=== PATIENT | female | born 2000 | race Caucasian/White ===

== ENCOUNTER 2020-01-04 07:27 | Inpatient (IN) | payer MEDICAID, OTHER ==
[~2020-01-04] VITALS: Ht 154.9 cm; Wt 49.9 kg
[2020-01-04 07:42] VITALS: BP 113/77
[2020-01-04] MEDS ORDERED: LACTATED RINGERS 1,000 ML IV STA ×2 (08:04→09:57)
[2020-01-04] MEDS ORDERED: ZOFRAN IV STA (08:04)
[2020-01-04 08:06] VITALS: BP 113/77
--- NOTE | 2020-01-04 08:10 | ER.PDOC ---
General Chief Complaint: less 20 wks Stated Complaint: 7 WKS PREG;VOMITTING Time seen by MD: 08:05 Source: patient Exam Limitations: no limitations History of Present Illness Initial Comments Nausea and vomiting since yesterday, no abdominal pain or diarrhea and patient says that she is 7 weeks . Severity/Quality: moderate Associated Symptoms (vomiting): freq vomitng Vital Signs First Vital Signs Date Time Temp Pulse Resp B/P (MAP) Pulse Ox O2 Delivery O2 Flow Rate FiO2 01/04/20 07:42 98.1 82 16 100 Last Vital Signs Date Time Temp Pulse Resp B/P (MAP) Pulse Ox O2 Delivery O2 Flow Rate FiO2 01/04/20 08:06 98.1 82 16 100 Past Medical History Medical History: no pertinent history Surgical History: no surgical history Social History Alcohol Use: none Drug Use: none Constitutional: no symptoms reported Respiratory: no symptoms reported Cardiovascular: no symptoms reported Gastrointestinal: see HPI Genitourinary: no symptoms reported All Other Systems: Reviewed and Negative Physical Exam General Appearance: No Apparent Distress, WD/WN Neck: Non-Tender, Full Range of Motion, Supple, Normal Inspection Respiratory: chest non-tender, lungs clear, normal breath sounds, no respi ratory distress, no accessory muscle use Cardiovascular: Normal Peripheral Pulses, Regular Rate, Rhythm, No Edema, No Gallop, No JVD, No Murmur Gastrointestinal: Normal Bowel Sounds, Non Tender, Soft Back: Normal Inspection, No CVA Tenderness, No Vertebral Tenderness Extremities: Normal Range of Motion, Non-Tender, Normal Inspection, No Pedal Edema, No Calf Tenderness, Normal Capillary Refill, Pelvis Stable 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, No Motor/Sensory Deficits, Alert, Normal Mood/Affect, Oriented x 3 Skin: Normal Color, Warm/Dry Results/Orders Results/Orders Orders - JOVANI MONSIVAIS MD Cbc With Auto Diff (01/04/20 08:04) Comprehensive Metabolic Panel (01/04/20 08:04) Lipase (01/04/20 08:04) Urinalysis (01/04/20 08:04) Hcg Urine (01/04/20 08:04) Ringer's Solution,Lactated (Lactated Rin (01/04/20 08:04) Ondansetron Hcl/Pf (Zofran) (01/04/20 08:04) Ringer's Solution,Lactated (Lactated Rin (01/04/20 08:13) Ondansetron Hcl/Pf (Zofran) (01/04/20 08:14) Urine Culture (01/04/20 07:40) Vital Signs Date Time Temp Pulse Resp B/P (MAP) Pulse Ox O2 Delivery O2 Flow Rate FiO2 01/04/20 08:06 98.1 82 16 100 01/04/20 07:42 98.1 82 16 01/04/20 07:42 98.1 82 16 100 Administered Medications Medications (Trade) Dose Ordered Sig/Akbar Route PRN Reason Start Time Stop Time Status Last Admin Dose Admin Ondansetron HCl (Zofran) 4 mg STAT STAT IV 01/04/20 08:04 01/04/20 08:05 DC 01/04/20 08:22 4 MG Laboratory Tests Test 01/04/20 07:40 01/04/20 08:10 01/04/20 08:27 Urine Collection Type VOID Urine Color YELLOW (YELLOW) Urine Appearance CLOUDY (CLEAR) H Urine Bilirubin NEGATIVE MG/DL (NEGATIVE) Urine Ketones MODERATE (NEGATIVE) H Urine Specific [place] 1.020 (1.005-1.035) Urine pH 7.0 (5.0-6.0) Urine Protein TRACE (NEGATIVE) H Urine Urobilinogen NORMAL (NEGATIVE) Urine Nitrate NEGATIVE (NEGATIVE) Urine Leukocyte Esterase NEGATIVE (NEGATIVE) Urine Blood NEGATIVE (NEGATIVE) Urine RBC NONE SEEN RBC/HPF (NONE Urine WBC 0-2 WBC/HPF (0-2) Urine Squamous Epithelial Cells MANY #/HPF (FEW) Urine Bacteria FEW (NONE SEEN) H Urine Glucose NEGATIVE (NEGATIVE) Urine HCG, Qualitative POSITIVE (NEGATIVE) White Blood Count 19.9 10^3/uL (4.5-12.5) H Red Blood Count 5.12 10^6/uL (4.00-5.20) Hemoglobin 15.7 g/dL (12.4-14.8) H Hematocrit 42.7 % (36.0-46.0) Mean Corpuscular Volume 83.4 fL (78-100) Mean Corpuscular Hemoglobin 30.7 pg (26-34) Mean Corpuscular Hemoglobin Concent 36.8 g/dL (33-36.5) H Red Cell Distribution Width 12.0 % (11.5-14.5) Platelet Count 259 10^3/uL (150-400) Mean Platelet Volume 10.6 fL (7.8-11.0) Neutrophils (%) (Auto) 90.4 % (41.0-85.0) *H Lymphocytes (%) (Auto) 5.2 % (24.0-44.0) *L Monocytes (%) (Auto) 4.0 % (5.0-12.0) L Neutrophils # (Auto) 18.0 10^3/uL (1.8-8.0) H Lymphocytes # (Auto) 1.03 10^3/uL1 (1.2-5.2) L Monocytes # (Auto) 0.8 10^3/uL (0.0-0.4) H Absolute Immature Granulocyte (auto 0.06 10^3 u/L (0-2) Absolute Eosinophils (auto) 0.0 10^3/uL (0.0-0.2) Immature Granulocytes % 0.30 % (0.00-0.50) Eosinophils % 0.0 % (0.0-5.0) Basophils % 0.1 % (0.0-0.2) Basophils # 0.0 10^3/uL (0.0-0.1) Sodium Level 130 mmol/L (132-145) L Potassium Level 3.4 mmol/L (3.6-5.2) L Chloride Level 97.0 mmol/L (96-109) Carbon Dioxide Level 23.6 mmol/L (20.0-32) Anion Gap 12.8 Blood Urea Nitrogen 10 mg/dL (7-18) Creatinine 0.70 mg/dL (0.59-1.40) Estimated GFR () 129.1 (>/=60) Est GFR (CKD-EPI)(Non-Afr Ukrainian) 106.7 (>/=60) BUN/Creatinine Ratio 14.0 Glucose Level 137 mg/dL (70-110) H Calcium Level 9.3 mg/dL (8.4-10.5) Total Bilirubin 0.7 mg/dL (0.2-1.0) Aspartate Amino Transferase (AST) 13 U/L (0-35) Alanine Aminotransferase (ALT) 14 U/L (12-78) Alkaline Phosphatase 55 U/L (50-136) Total Protein 6.9 g/dL (6.4-8.2) Albumin 4.1 g/dL (3.4-5.0) Globulin 2.8 Lipase 54 U/L (114-286) L Segmented Neutrophils 95 % (28-78) H Lymphocytes 2 % (25-36) L Monocytes 3 % (3-9) Platelet Estimate ADEQUATE Platelet Morphology NORMAL Blood Morphology Comment NORMAL MORPHOLOGY Departure Time of Disposition: 09:05 Disposition: 09 ADMITTED INPATIENT Impression: Primary Impression: Hyperemesis gravidarum before end of 22 week gestation, dehydration Condition: Stable Referrals: PCP,UNKNOWN (PCP) PRIMARY CARE PROVIDER Comments Admitted to Dr. Whitley Duration or Time Spent with Pa: 45 min JOVANI MONSIVAIS MD January 04, 2020 08:10
[2020-01-04] MEDS ORDERED: LACTATED RINGERS 1,000 ML ONE ×2 (08:13→21:40)
[2020-01-04] MEDS ORDERED: ZOFRAN ONE ×3 (08:14→17:51)
[2020-01-04 08:17] LABS: BASOPHIL % 0.1 % (0.0-0.2); LYMPHOCYTES # 1.03 10^3/uL1 (1.2-5.2); LYMPHOCYTES % 5.2 % (24.0-44.0); MEAN CORP HGB 30.7 pg (26-34); MONOCYTES # 0.8 10^3/uL (0.0-0.4); NEUTROPHILS % 90.4 % (41.0-85.0); PLATELET COUNT 259 10^3/uL (150-400)
[2020-01-04 08:24] LABS: APPEARANCE,URINE CLOUDY (CLEAR); BILIRUBIN,URINE NEGATIVE (NEGATIVE); UA COLOR YELLOW (YELLOW)
[2020-01-04 08:25] LABS: UROBILINOGEN,URINE NORMAL (NEGATIVE)
[2020-01-04 08:33] LABS: CALCIUM 9.3 mg/dL (8.4-10.5); CARBON DIOXIDE 23.6 mmol/L (20.0-32)
[2020-01-04 08:44] LABS: LYMPHOCYTE 2 % (25-36); MONOCYTE 3 % (3-9); SEGMENTED NEUTROPHILS 95 % (28-78)
[2020-01-04] MEDS ORDERED: HNS 1000ML/KCL 20MEQ 1,000 ML IV STA (09:06)
[2020-01-04] MEDS ORDERED: HNS 1000ML/KCL 20MEQ 1,000 ML ONE (09:11)
--- NOTE | 2020-01-04 09:32 | NUR ---
REPORT REPORT CALLED TO FRANDY VANESSA. PT TAKEN BY W/C ESCORTED BY ROMULO VANESSA. PT ALERT, ORIENTED, STABLE UPON TRANFER.
[2020-01-04] MEDS ORDERED: REGLAN IV STA (09:57)
--- NOTE | 2020-01-04 09:57 | PCM.HP ---
HISTORY & PHYSICAL HISTORY & PHYSICAL DATE OF ADMISSION: 01/04/20 CHIEF COMPLAINT: intractable N/V x 2 days. HISTORY OF PRESENT ILLNESS: 19 year old G1 with sure LMP 11/13/19 (EDC of 08/20/2020) at 7 3/7 weeks who presented to the ER today with intractable N/V x 2 days. Travelling between [place] and [place]. No abd pain. No dysuria. No fever, + chills, no sick contacts with the same sx's. + nervous personality. Feels the same after 1 L NS and Zofran in the ER. Per patient, previous U/S with IUP, + FHR. PAST MEDICAL HISTORY: none SURGICAL HISTORY: none CURRENT MEDICATIONS: PNV ALLERGIES: NKDA FAMILY HISTORY: DM SOCIAL HISTORY: no E/T/D, no STD Hx REVIEW OF SYSTEMS: CONST: No fever, + fatigue, no weight changes. EYES: No recent vision problems. ENT: No congestion, ear pain, or sore throat. C/V: No chest pain, palpitations, or edema. RESP: No cough, congestion, wheezing or shortness of breath. GI: No constipation, or diarrhea. : No incontinence or dysuria. M/S: No joint pain or swelling. SKIN: No rash. NEURO: No headache, focal numbness or weakness, dizziness, or seizures. PSYCH: No depression or anxiety. ENDO: No thyroid problems. No polyuria or polydipsia. HEME: No abnormal bruising or bleeding. LYMPH: No swollen glands. IMMUN: No itching or hives. PHYSICAL EXAM: VITALS: VSSAF GENERAL: + hunched over while vomiting HEAD: Normal with no signs of head trauma. ENT: Hearing grossly intact, normal oropharynx. NECK: Supple, no tenderness, no lymphadenopathy, no masses, no thyromegaly LUNGS: Clear breath sounds. Heart: Reg rate. ABD: Bowel sounds normal, soft, nontender, no masses, no organomegaly, LYMPH: No lymphadenopathy noted. : not done EXT: Intact x 4 SKIN: No rashes or lesions. NEURO: Alert and oriented x3. Normal affect. ASSESSMENT: Hyperemesis gravidarum - not remediated in the ER PLAN: Admit for 23 hour obs, IV hydration, anti-emetic, H2 lulu. I discussed with the patient that if she improves, will give po trial and discharge this afternoon. However, if she doesn't improve, then made need to keep her overnight or longer. She verbalizes good understanding. All questions answered. LIDA RODRIGUEZ MD January 04, 2020 09:57
[2020-01-04] MEDS: PEPCID IV SCH ×2 (10:11→21:35)
[2020-01-04] MEDS ORDERED: LACTATED RINGERS 2,000 ML ONE (10:16)
[2020-01-04] MEDS: ZOFRAN IV SCH ×2 (10:19→17:56)
[2020-01-04] MEDS ORDERED: NS 25ML 25 ML IV ONE (19:05)
[2020-01-04] MEDS ORDERED: PEPCID IV ONE (19:07)
[2020-01-04] MEDS: PHENERGAN IV PRN (19:15)
[2020-01-04] MEDS ORDERED: AMBIEN ONE (21:36)
[2020-01-04] MEDS: LACTATED RINGERS 1,000 ML IV SCH (21:48)
[2020-01-04] MEDS ORDERED: AMBIEN PO PRN (22:00)
[2020-01-05] MEDS ORDERED: NS 25ML 25 ML IV ONE ×2 (01:45→02:26)
[2020-01-05] MEDS ORDERED: PHENERGAN ONE ×2 (01:45→07:23)
[2020-01-05] MEDS: PHENERGAN IV PRN ×2 (01:48→07:34)
[2020-01-05] MEDS ORDERED: ZOFRAN ONE ×3 (02:25→17:18)
[2020-01-05] MEDS: ZOFRAN IV SCH ×3 (02:30→17:42)
[2020-01-05] MEDS: LACTATED RINGERS 1,000 ML IV SCH ×5 (02:35→22:40)
--- NOTE | 2020-01-05 06:46 | PRM.PN ---
PROGRESS NOTE S/O/A/P DATE: 01/05/20 S: continuous nausea, vomited x 3 overnight, + abd soreness due to repeated vomiting (no focal abd pain). O: VSSAF General: A&O x 4, no respiratory distress, left lateral decubitus/curled Abdomen: soft, non-tender, no CVAT A: Hyperemesis gravidarum - no improvement P: Continue IV hydation/Reglan/Zofran; re-check CBC/BMP/amylase/lipase, OB (to rule out molar and multiple gestation) and pancreas/GB US, IV steroids to decrease the overreaction to stimuli, supportive care. LIDA RODRIGUEZ MD January 05, 2020 06:46
[2020-01-05 07:22] LABS: BASOPHIL # 0.1 10^3/uL (0.0-0.1); BASOPHIL % 0.3 % (0.0-0.2); LYMPHOCYTES # 1.25 10^3/uL1 (1.2-5.2); LYMPHOCYTES % 8.3 % (24.0-44.0); MEAN CORP HGB 30.7 pg (26-34); MONOCYTES % 6.5 % (5.0-12.0); NEUTROPHIL # 12.8 10^3/uL (1.8-8.0); NEUTROPHILS % 84.5 % (41.0-85.0); PLATELET COUNT 244 10^3/uL (150-400); RED CELL DISTRIBUTION WIDTH 12.2 % (11.5-14.5)
[2020-01-05 07:26] LABS: CALCIUM 9.1 mg/dL (8.4-10.5); CARBON DIOXIDE 25.7 mmol/L (20.0-32)
[2020-01-05] MEDS: ATIVAN IV SCH ×4 (07:34→14:12)
[2020-01-05] MEDS ORDERED: LACTATED RINGERS 1,000 ML ONE ×3 (07:46→17:18)
[2020-01-05] MEDS ORDERED: ATIVAN ONE ×4 (10:18→21:42)
[2020-01-05] MEDS ORDERED: PEPCID IV ONE ×2 (10:18→20:19)
[2020-01-05] MEDS: PEPCID IV SCH ×2 (10:22→20:41)
--- NOTE | 2020-01-05 10:46 | DIREP ---
PROCEDURE:ABDOMINAL ULTRASOUND COMPARISON:None. INDICATIONS:persistent nausea/vomiting at 7 weeks FINDINGS: PANCREAS:Normal pancreas. LIVER:Normal hepatic parenchymal architecture. GALLBLADDER:Normal appearing gallbladder without evidence for gallbladder wall thickening or pericholecystic fluid. The gallbladder wall measures 3 mm. Common bile duct is normal at 3 mm. BILIARY:There is no biliary ductal dilatation. RIGHT KIDNEY:Normal. No hydronephrosis. The right kidney measures 10.4 cm in greatest dimension pre LEFT KIDNEY:Normal. No hydronephrosis. The left kidney measures 10.4 cm in greatest dimension. SPLEEN:Normal. AORTA:The visualized portions appear unremarkable. IVC:Intrahepatic portions unremarkable. OTHER:Negative. No ascites is identified. CONCLUSION:No abnormality noted. Dictated by: Giovanni Masters M.D. on 01/05/2020 at 10:42 AM
--- NOTE | 2020-01-05 11:28 | DIREP ---
PROCEDURE:US OB 1ST TRI - TV COMPARISON:None. INDICATIONS:hyperemesis TECHNIQUE:Transabdominal and endovaginal pelvic ultrasound images were obtained. Endovaginal images were obtained to optimally evaluate the and maternal adnexal structures. FINDINGS: LMP: November 12, 2019, corresponding to an EGA of 7 W 5 D BRANDO (LMP): Aug 18, 2020 INTRAUTERINE GESTATIONAL SAC:Present. YOLK SAC: Absent. POLE: Present. CRL = 1.1 cm, corresponding to an EGA of 7 W 2 D. US BRANDO:Aug 21, 2020 CARDIAC ACTIVITY:Present. 142 bpm. UTERUS:Normal. OVARIES:Normal. Right ovary measures 3.2 cm. Left ovary measures 3.1 cm. There are no adnexal masses. CUL-DE-SAC:Normal. OTHER:Survey of the placental anatomic structure and amniotic fluid could not be performed because of gestational age (<14 weeks). CONCLUSION: Single live intrauterine . Dictated by: Jorge A Robb III, MD on 01/05/2020 at 11:20 AM
[2020-01-05] MEDS: REGLAN IV SCH ×3 (11:53→23:49)
[2020-01-05] MEDS ORDERED: SOLU-CORTEF ONE ×2 (14:05→21:13)
[2020-01-05] MEDS: SOLU-CORTEF IV SCH ×2 (14:12→21:33)
[2020-01-05] MEDS ORDERED: ATIVAN IV PRN (16:00)
[2020-01-05] MEDS ORDERED: WATER 20 ML ONE (21:23)
[2020-01-05] MEDS ORDERED: LACTATED RINGERS 2,000 ML ONE (22:24)
[2020-01-06] MEDS ORDERED: ZOFRAN ONE ×2 (01:28→09:13)
[2020-01-06] MEDS: ZOFRAN IV SCH ×2 (01:35→09:25)
[2020-01-06] MEDS: LACTATED RINGERS 1,000 ML IV SCH (04:07)
[2020-01-06] MEDS ORDERED: SOLU-CORTEF ONE (05:46)
[2020-01-06] MEDS ORDERED: WATER 20 ML ONE (05:47)
[2020-01-06] MEDS: REGLAN IV SCH (05:51)
[2020-01-06] MEDS: SOLU-CORTEF IV SCH (05:52)
--- NOTE | 2020-01-06 06:51 | PRM.PN ---
PROGRESS NOTE S/O/A/P S: no vomiting overnight, feel moderately better, tolerated Popsicles and water yesterday/last night, no focal abd pain O: VSSAF General: A&O x 4, no respiratory distress, left lateral decubitus/curled Abdomen: soft, non-tender, no CVAT A: Hyperemesis gravidarum - stable P: If can tolerate po liquids this morning, will discharge. LIDA RODRIGUEZ MD January 06, 2020 06:51
--- NOTE | 2020-01-06 06:58 | PRM.DC ---
DISCHARGE SUMMARY Y DATE OF ADMISSION: 01/04/20 DATE OF DISCHARGE: 01/06/20 ADMITTING DIAGNOSIS: 1. 19 year old G 1 at 7 3/7 weeks with Hyperemesis Gravidarum. DISCHARGE DIAGNOSIS: 1. 19 year old G 1 at 7 3/7 weeks with Hyperemesis Gravidarum. CONSULTS: None PROCEDURES & DATES: Transvaginal ultrasound and pancreas/gallbladder ultrasound on 01/05/20. HOSPITAL COURSE: 19 year old G 1 at 7 3/7 weeks with Hyperemesis Gravidarum who was admitted for IV hydration and anti-emetic therapy due to unremittable nausea/vomiting in the ER. Despite IV resuscitation and Zofran/Pepcid, she persisted with nausea/vomiting. Reglan, Ativan, Hydrocortisone were then added. Repeat BMP, amylase and lipase were normal. Pancreas and gallbladder ultrasound were normal. Transvaginal ultrasound showed guzmán intrauterine with heart rate. On the morning of hospital day 3, she finally is starting to feel better with tolerating water and Popsicles. Her vital signs were stable and afebrile throughout her hospital course. Abdomen: on the day of discharge, her abdomen was soft. She is discharged after trial of liquids for breakfast. MEDICATIONS: Zofran, Reglan DISPOSITION: Stable to home. PLAN: Keep her 1st OB appointment when she returns to [place]. LIDA RODRIGUEZ MD January 06, 2020 06:58
[2020-01-06] MEDS ORDERED: ONDA8TAB16 PO (07:51)
[2020-01-06] MEDS ORDERED: METO10TA83 PO (07:51)
--- NOTE | 2020-01-06 07:51 | PRM.DC ---
OB Discharge Summary Discharge Summary Patient History: No known health problems G8 MOTHER G8 FATHER Assessment & Plan see Discharge Summary Note. LIDA RODRIGUEZ MD January 06, 2020 07:51
[2020-01-06 08:23] VITALS: BP 114/71
[2020-01-06] MEDS ORDERED: PEPCID IV ONE (09:14)
[2020-01-06] MEDS: PEPCID IV SCH (09:22)
== END 2020-01-06 09:55 | disposition home or self-care (01) | DRG 833 ==
LOC: ER 07:27 → LND 09:05 → OBSVTOIN 09:05
PROVIDERS: ADMIT Obstetrics & Gynecology; ATTEND Obstetrics & Gynecology
DX: O21.1 Hyperemesis gravidarum with metabolic disturbance (principal); Z3A.22 22 weeks gestation of pregnancy; Z83.3 Family history of diabetes mellitus
CPT/HCPCS: 36415; 76700; 76801; 76817; 80048; 80053; 81000; 81025; 82150; 83690; 85025; 87077; 87086; 87186; 99285; G0378; J1720; J2060; J2405; J2550; J3490; J7030; J7120; A4216